=== PATIENT | female | born 1955 | race American Indian/Alaskan Native ===

== ENCOUNTER 2020-07-13 08:12 | Outpatient (CLI) | payer MEDICAID ==
--- NOTE | 2020-07-13 09:34 | Fluoroscopy Report ---
BARIUM SWALLOW Indication: GASTRO-ESOPHAGEAL REFLUX. Technique: Single contrast barium technique utilized to evaluate the esophagus. FINDINGS: To begin the exam, swallowing was evaluated in the lateral position under direct fluorosco py. Swallowing was normal. No mucosal irregularity, mass, mass effect, or critical stenosis. There were no abnormal tertiary c ontractions as seen with dysmotility. No gastroesophageal reflux. The patient was able to pass a antione um tablet without difficulty. The patient mentions previous diagnosis of a polyp in her throat on endoscopy from a separate facilit y. No obvious polyp is detected on barium study. IMPRESSION: Unremarkable exam. Fluoroscopic time: 2.0 minutes Number of fluoroscopic images: 35 Signer Name: Darrion Braden Jr, MD Signed: 07/13/2020 9:30 AM Workstation Name: [id number]
== END 2020-07-13 08:13 | disposition home or self-care (01) ==
LOC: FLUORO 08:12
PROVIDERS: ATTEND Chiropractor
DX: K21.9 Gastro-esophageal reflux disease without esophagitis (principal)
CPT/HCPCS: 74220